=== PATIENT | male | born 1985 | race Caucasian/White ===

== ENCOUNTER 2017-10-30 16:02 | Emergency (ER) | payer SELFPAY ==
[~2017-10-30] VITALS: Ht 182.9 cm; Wt 71.7 kg
[2017-10-30 16:15] VITALS: BP 140/84
[2017-10-30] MEDS ORDERED: IBUP-1027 PO (16:56)
[2017-10-30] MEDS ORDERED: AMOX1TAB61 PO (16:56)
[2017-10-30] MEDS ORDERED: DIPHTH,PERTUSS(ACELL),TET TOX 0.5 ML DISP.SYRIN. VAX IM ONE (17:00)
[2017-10-30] MEDS ORDERED: VANCOMYCIN 1GM IVPB FOR OMNI 250 ML IV ONE (17:00)
--- NOTE | 2017-10-30 17:13 | PHYS DOC ---
Past Medical History Past Medical History: No Pertinent History Past Surgical History: No Surgical History Alcohol Use: Occasionally Drug Use: None Adult General Chief Complaint Chief Complaint: HAND PROBLEM HPI HPI Patient is a 31 year old [f__sex] who presents with [] Current Medications Current Medications Current Medications Medications (Trade) Dose Ordered Sig/Mariaelena Start Time Stop Time Status Last Admin Dose Admin Diphtheria/ Tetanus/Acell Pertussis (Boostrix) 0.5 ml ONCE ONCE 10/30/17 17:00 10/30/17 17:01 DC Vancomycin HCl 250 ml @ 250 mls/hr 1X ONCE 10/30/17 17:00 10/30/17 17:35 DC Allergies Allergies Allergies Coded Allergies Type Severity Reaction Last Updated Verified No Known Drug Allergies 10/30/17 No Current Patient Data Vital Signs Vital Signs Date Time Temp Pulse Resp B/P (MAP) Pulse Ox O2 Delivery O2 Flow Rate FiO2 10/30/17 16:15 98.3 119 22 100 Room Air 98.3 EKG EKG [] Radiology/Procedures Radiology/Procedures [] Course & Med Decision Making Course & Med Decision Making Pertinent Labs and Imaging studies reviewed. (See chart for details) [] Dragon Disclaimer Dragon Disclaimer This electronic medical record was generated, in whole or in part, using a voice recognition dictation system. Departure Departure Disposition: 07 AGAINST MEDICAL ADVICE Scripts Ibuprofen (IBUPROFEN) 400 Mg Tablet 400 MG PO PRN Q8HRS Y for PAIN, #10 TAB 0 Refills Prov: DARREN DORSEY MD 10/30/17 Amoxicillin/Potassium Clav (AUGMENTIN 875-125 TABLET) 1 Each Tablet 1 TAB PO BID, #14 TAB 0 Refills Prov: DARREN DORSEY MD 10/30/17 Assessment/Plan Assessment/Plan 31-year-old male presenting to the ER today reporting wounds on his hand however we found significant cellulitis with wound on his right thigh. I went to see the patient after I heard that he was trying to leave AGAINST MEDICAL ADVICE to evaluate the patient explaining risks and benefits to the patient. Prior to this OPAL Neely evaluated the patient. I explained to the patient the risk of loss of limb disability and which he was able to clearly explained in his own words. I offered him alternative therapy including oral antibiotics to follow-up with his doctor in the next 2 days. He states he can follow-up with his doctor in 2 days and would like oral antibiotics. He refused to be admitted to the hospital for IV antibiotics and wound evaluation and therapy. I ordered the patient Augmentin. I also prescribed him ibuprofen to go home with. He then left AGAINST MEDICAL ADVICE. OPAL neely will finish note. Problems: DARREN DORSEY MD Oct 30, 2017 17:13
--- NOTE | 2017-10-30 17:25 | PHYS DOC ---
Past Medical History Past Medical History: No Pertinent History Past Surgical History: No Surgical History Alcohol Use: Occasionally Drug Use: None Adult General Chief Complaint Chief Complaint: HAND PROBLEM HPI HPI Patient is a 31 year old male presents to the emergency department with right thigh wounds for the last 4 days. with left hand wounds noted with patient stating he has splinters to the left thumb. Patient denies fever,chill nausea or vomiting. Review of Systems Review of Systems Constitutional: Denies fever or chills [] Eyes: Denies change in visual acuity, redness, or eye pain [] HENT: Denies nasal congestion or sore throat [] Respiratory: Denies cough or shortness of breath [] Cardiovascular: No additional information not addressed in HPI [] GI: Denies abdominal pain, nausea, vomiting, bloody stools or diarrhea [] : Denies dysuria or hematuria [] Musculoskeletal: Denies back pain or joint pain [] Integument: C/o right leg wound, left hand wound, wound the left hand Neurologic: Denies headache, focal weakness or sensory changes [] Endocrine: Denies polyuria or polydipsia [] All other systems were reviewed and found to be within normal limits, except as documented in this note. Current Medications Current Medications Current Medications Medications (Trade) Dose Ordered Sig/Mariaelena Start Time Stop Time Status Last Admin Dose Admin Diphtheria/ Tetanus/Acell Pertussis (Boostrix) 0.5 ml ONCE ONCE 10/30/17 17:00 10/30/17 17:01 DC Vancomycin HCl 250 ml @ 250 mls/hr 1X ONCE 10/30/17 17:00 10/30/17 17:59 Allergies Allergies Allergies Coded Allergies Type Severity Reaction Last Updated Verified No Known Drug Allergies 10/30/17 No Physical Exam Physical Exam Constitutional: Well developed, well nourished, no acute distress, non-toxic appearance. [] HENT: Normocephalic, atraumatic, bilateral external ears normal, oropharynx moist, no oral exudates, nose normal. [] Eyes: PERRLA, EOMI, conjunctiva normal, no discharge. [] Neck: Normal range of motion, no tenderness, supple, no stridor. [] Cardiovascular:Heart rate regular rhythm, no murmur [] Lungs & Thorax: Bilateral breath sounds clear to auscultation [] Abdomen: Bowel sounds normal, soft, no tenderness, no masses, no pulsatile masses. [] Skin: Warm, dry, no erythema, no rash. Patient with grapefruit size wound to the right thigh with redness from anterior medial thigh to the medial thigh area with warmth and tenderness noted. The wound appeared to be at least 4 cm in depth with dark edges noted with this yellow secretions noted in the middle of the wound. Patient with open wound to the left hand on the thumb and index finger, no drainage noted from the site. Extremities: No tenderness, no cyanosis, no clubbing, ROM intact, no edema. [] Neurologic: Alert and oriented X 3, normal motor function, normal sensory function, no focal deficits noted. [] Psychologic: Affect normal, judgement normal, mood normal. [] Current Patient Data Vital Signs Vital Signs Date Time Temp Pulse Resp B/P (MAP) Pulse Ox O2 Delivery O2 Flow Rate FiO2 10/30/17 16:15 98.3 119 22 100 Room Air 98.3 EKG EKG [] Radiology/Procedures Radiology/Procedures [] Course & Med Decision Making Course & Med Decision Making Pertinent Labs and Imaging studies reviewed. (See chart for details) Patient was informed that he needed to be placed on IV antibiotics with patient stating that he cannot stay here in the hospital. Patient stated he needed to make a few calls. Patient then stated that he was not going to be able to admitted. He was instructed that the infection to the leg appears to bad enough that he may loose the leg from infection. Patient continues to want to leave AMA. Dr Aguilar presented to the room and took over care of this patient please refer to his note for discharge medications, and discharge instructions. [] Dragon Disclaimer Dragon Disclaimer This electronic medical record was generated, in whole or in part, using a voice recognition dictation system. Departure Departure Impression: Primary Impression: Left against medical advice Disposition: 07 AGAINST MEDICAL ADVICE Condition: STABLE Scripts Ibuprofen (IBUPROFEN) 400 Mg Tablet 400 MG PO PRN Q8HRS Y for PAIN, #10 TAB 0 Refills Prov: DARREN AGUILAR MD 10/30/17 Amoxicillin/Potassium Clav (AUGMENTIN 875-125 TABLET) 1 Each Tablet 1 TAB PO BID, #14 TAB 0 Refills Prov: DARREN AGUILAR MD 10/30/17 FRANCISCO SEXTON APRN Oct 30, 2017 17:25
== END 2017-10-30 17:09 | disposition left against medical advice (07) ==
LOC: ER 16:02
DX: S61.402A Unspecified open wound of left hand, initial encounter (principal); L03.115 Cellulitis of right lower limb; W45.8XXA Other foreign body or object entering through skin, initial encounter; Y93.89 Activity, other specified; Y92.89 Other specified places as the place of occurrence of the external cause; Y99.8 Other external cause status
CPT/HCPCS: 99283